=== PATIENT | female | born 1965 ===

== ENCOUNTER 2017-08-25 10:46 | Emergency (ER) | payer BC ==
[2017-08-25] MEDS ORDERED: Alum Hydrox/Mag Hydrox/Simeth 30 ML, Lidocaine 2% 15 ML PO ONE ×2 (11:27)
[2017-08-25] MEDS ORDERED: Aspirin 81 MG Tab.Chew PO ONE (11:27)
[2017-08-25] MEDS ORDERED: Famotidine 20 MG Tab PO ONE (12:29)
--- NOTE | 2017-08-25 12:32 | CT ---
Head CT Technique: Multiple axial sections through the brain were obtained. Intravenous contrast was not utilized. Comparison: No previous intracranial imaging. Findings: Ventricles along with basal cisterns and sulci over the convexities are within normal limits for the patient's age. No abnormal parenchymal densities are seen. No evidence of intracranial hemorrhage. No midline shift or mass effect is seen. Bone window settings were reviewed which shows no acute calvarial abnormality. Minimal fluid is seen within the sphenoid sinus. Sinuses otherwise are clear. No acute calvarial abnormality is seen. Impression: 1. Minimal fluid within the sphenoid sinus. Uncertain if this represents minimal sinusitis or retained secretions. 2. No acute intracranial abnormality is seen. Diagnostic code #3
--- NOTE | 2017-08-25 12:33 | EDM.PDOC ---
ED HPI GENERAL MEDICAL PROBLEM - General Chief Complaint: Chest Pain Stated Complaint: UPPER ABDOMINAL DISCOMFORT/L ARM WEAKNESS Time Seen by Provider: 08/25/17 11:12 Source of Information: Reports: Patient History Limitations: Reports: No Limitations - History of Present Illness INITIAL COMMENTS - FREE TEXT/NARRATIVE: Patient is a 51-year-old female who presents to the ED complaining of epigastric pain. Patient states she has a fullness to her abdomen after eating steak and fried potatoes last night. States the potatoes had plenty of pepper on it and may have worsened her GERD-like symptoms. With onset of epigastric discomfort she also developed some left-sided jaw pain, left arm ache, and heaviness. Pain at its peak was a 10 out of 10. Currently with admission to the ED it is a 1-2 out of 10. She has a history of acid reflux and does not take any meds on a regular basis. She's been mildly nauseated at times. She has no shortness of breath, orthopnea, chest pain with exertion, dizziness, vision changes, increased edema to lower extremities, PND, orthopnea, history of coronary disease, history of gastric ulcers, history of TIA/stroke, or any additional complaints. At no time did she have slurred speech, difficulty swallowing, or with ambulating. She has no headache. Their is a strong family history for 1st degree relatives with heart disease. Dad had the maker and is still alive. Mom has had many mini strokes. She is concerned about her heart and also possible stroke. Patient has no past medical history and currently taking no medications. She's had her gallbladder removed. She's had a partial hysterectomy. She does not smoke. She'll utilizes alcohol intermittently through the year. Denies any recreational drug use. Epigastric Pain Score (Numeric/FACES): 2 - Related Data Allergies Allergy/AdvReac Type Severity Reaction Status Date / Time Penicillins Allergy Rash Verified 08/25/17 10:58 phenobarbital Allergy Rash Verified 08/25/17 10:58 Home Meds: Home Meds . [No Known Home Meds] 08/25/17 [History] Past Medical History - Past Health History Medical/Surgical History: Denies Medical/Surgical History - Past Surgical History GI Surgical History: Reports: Cholecystectomy Female Surgical History: Reports: Hysterectomy Social & Family History - Tobacco Use Smoking Status *Q: Never Smoker - Recreational Drug Use Recreational Drug Use: No ED ROS GENERAL - Review of Systems Review Of Systems: See Below Constitutional: Reports: No Symptoms HEENT: Reports: No Symptoms Respiratory: Reports: No Symptoms, Shortness of Breath. Denies: Pleuritic Chest Pain, Cough, Sputum Cardiovascular: Reports: Chest Pain (To the lower sternal border). Denies: Blood Pressure Problem, Dyspnea on Exertion, Lightheadedness, Palpitations, Syncope GI/Abdominal: Reports: Abdominal Pain (Epigastric), Nausea (Mild intermittent). Denies: Constipation, Diarrhea, Vomiting : Reports: No Symptoms Musculoskeletal: Reports: No Symptoms (Currently) Skin: Reports: No Symptoms Neurological: Reports: No Symptoms (Currently) Psychiatric: Reports: No Symptoms ED EXAM, GENERAL - Physical Exam Exam: See Below Exam Limited By: No Limitations General Appearance: Alert, WD/WN, No Apparent Distress Eye Exam: Bilateral Eye: EOMI, Normal Inspection, PERRL Ears: Hearing Grossly Normal Nose: Normal Inspection Throat/Mouth: Normal Inspection, Normal Oropharynx, Normal Voice, No Airway Compromise Head: Atraumatic, Normocephalic Neck: Normal Inspection, Supple, Non-Tender, Full Range of Motion. No: Carotid Bruit (Bilateral) Respiratory/Chest: No Respiratory Distress, Lungs Clear, Normal Breath Sounds, No Accessory Muscle Use, Chest Non-Tender Cardiovascular: Normal Peripheral Pulses, Regular Rate, Rhythm, No Murmur Peripheral Pulses: 3+: Posterior Tibial (L), Posterior Tibial (R), 4+: Radial (L ), Radial (R) GI/Abdominal: Normal Bowel Sounds, Soft, No Organomegaly, No Distention, Tender (Mild tenderness noted to the epigastric region.) Back Exam: Normal Inspection. No: CVA Tenderness (L), CVA Tenderness (R) Extremities: Normal Inspection, Normal Range of Motion, Non-Tender, No Pedal Edema, Normal Capillary Refill Neurological: Alert, Oriented, CN II-XII Intact, Normal Cognition, No Motor/ Sensory Deficits, Other (No facial droop, slurred speech, uvula deviation, weakness discrepancy as to the upper and lower extremities. Cerebellar function intact including: Finger-nose, rapid alternating movements, and [id number].) Psychiatric: Normal Affect, Normal Mood Skin Exam: Warm, Dry, Intact, Normal Color, No Rash Course - Vital Signs Last Recorded V/S: Last Vital Signs Temp 98.5 F 08/25/17 10:55 Pulse 68 08/25/17 10:55 Resp 18 08/25/17 10:55 BP 132/90 08/25/17 10:55 Pulse Ox 99 08/25/17 10:55 - Orders/Labs/Meds Orders: Active Orders 24 hr Category Date Time Status EKG Documentation Completion [RC] ASDIRECTED Care 08/25/17 11:10 Active EKG 12 Lead [EK] Stat Ther 08/25/17 11:09 Ordered Labs: Laboratory Tests 08/25/17 08/25/17 08/25/17 Range/Units 11:06 11:06 11:06 WBC (3.98-10.04) K/mm3 RBC (3.98-5.22) M/mm3 Hgb (11.2-15.7) gm/L Hct (34.1-44.9) % MCV (79.4-94.8) fl MCH (25.6-32.2) pg MCHC (32.2-35.5) g/dl RDW Std Deviation (36.4-46.3) fL Plt Count (182-369) K/mm3 MPV (9.4-12.3) fl Neutrophils % (Manual) (40-60) % Band Neutrophils % (0-10) % Lymphocytes % (Manual) (20-40) % Atypical Lymphs % % Monocytes % (Manual) (2-10) % Eosinophils % (Manual) (0.7-5.8) % Basophils % (Manual) (0.1-1.2) Platelet Estimate RBC Morph Comment PT 10.0 (8.0-13.0) SECONDS INR 0.94 APTT 27 (22-36) SECONDS Sodium 144 (136-145) mEq/L Potassium 4.0 (3.5-5.1) mEq/L Chloride 106 (98-107) mEq/L Carbon Dioxide 28 (21-32) mEq/L Anion Gap 14.0 (5-15) BUN 11 (7-18) mg/dL Creatinine 0.9 (0.55-1.02) mg/dL Est Cr Clr Drug Dosing 53.12 mL/min Estimated GFR (MDRD) > 60 (>60) mL/min BUN/Creatinine Ratio 12.2 L (14-18) Glucose 99 (74-106) mg/dL Calcium 9.5 (8.5-10.1) mg/dL Total Bilirubin 0.6 (0.2-1.0) mg/dL AST 25 (15-37) U/L ALT 28 (14-59) U/L Alkaline Phosphatase 116 (46-116) U/L Troponin I < 0.017 (0.00-0.056) ng/mL Total Protein 8.0 (6.4-8.2) g/dl Albumin 4.1 (3.4-5.0) g/dl Globulin 3.9 gm/dL Albumin/Globulin Ratio 1.1 (1-2) Lipase 137 (73-393) U/L TSH 3rd Generation 2.265 (0.358-3.74) uIU/mL 08/25/17 08/25/17 Range/Units 11:09 14:20 WBC 7.90 (3.98-10.04) K/mm3 RBC 5.01 (3.98-5.22) M/mm3 Hgb 14.5 (11.2-15.7) gm/L Hct 46.3 H (34.1-44.9) % MCV 92.4 (79.4-94.8) fl MCH 28.9 (25.6-32.2) pg MCHC 31.3 L (32.2-35.5) g/dl RDW Std Deviation 44.5 (36.4-46.3) fL Plt Count 313 (182-369) K/mm3 MPV 9.7 (9.4-12.3) fl Neutrophils % (Manual) 65 H (40-60) % Band Neutrophils % 0 (0-10) % Lymphocytes % (Manual) 30 (20-40) % Atypical Lymphs % 0 % Monocytes % (Manual) 2 (2-10) % Eosinophils % (Manual) 3 (0.7-5.8) % Basophils % (Manual) 0 L (0.1-1.2) Platelet Estimate Adequate RBC Morph Comment Normal PT (8.0-13.0) SECONDS INR APTT (22-36) SECONDS Sodium (136-145) mEq/L Potassium (3.5-5.1) mEq/L Chloride (98-107) mEq/L Carbon Dioxide (21-32) mEq/L Anion Gap (5-15) BUN (7-18) mg/dL Creatinine (0.55-1.02) mg/dL Est Cr Clr Drug Dosing mL/min Estimated GFR (MDRD) (>60) mL/min BUN/Creatinine Ratio (14-18) Glucose (74-106) mg/dL Calcium (8.5-10.1) mg/dL Total Bilirubin (0.2-1.0) mg/dL AST (15-37) U/L ALT (14-59) U/L Alkaline Phosphatase (46-116) U/L Troponin I < 0.017 (0.00-0.056) ng/mL Total Protein (6.4-8.2) g/dl Albumin (3.4-5.0) g/dl Globulin gm/dL Albumin/Globulin Ratio (1-2) Lipase (73-393) U/L TSH 3rd Generation (0.358-3.74) uIU/mL Meds: Medications Discontinued Medications Generic Name Dose Route Start Last Admin Trade Name Freq PRN Reason Stop Dose Admin Aspirin 324 mg 08/25/17 11:27 08/25/17 11:44 Aspirin PO 08/25/17 11:28 324 mg ONETIME ONE Administration Al Hydroxide/Mg Hydroxide 30 0 ml 08/25/17 11:27 08/25/17 11:45 ml/ Lidocaine HCl 15 ml PO 08/25/17 11:28 45 ml ONETIME ONE Administration Famotidine 40 mg 08/25/17 12:29 08/25/17 12:44 Pepcid PO 08/25/17 12:30 40 mg ONETIME ONE Administration - Re-Assessments/Exams Free Text/Narrative Re-Assessment/Exam: Order aspirin 324 mg by mouth and also GI cocktail by mouth. Initial labs and studies will include CBC, chem 14, coag studies, lipase, troponin, TSH, chest x-ray, and CT of the head without contrast. EKG will be obtained as well. Labs reviewed:CBC and chemistry panel were essentially normal. Troponin less than 0.017. Lipase 137. TSH 2.2. Second troponin has been ordered for 2 pm. EKG sinus rhythm rate of [address] changes noted. Chest x-ray reviewed with Dr. Brand with no acute processes present. Interpretation is pending. Head CT minimal fluid within the sphenoid sinus. Uncertain if this is represents mild sinusitis retained secretions. No acute intracranial abnormalities seen 08/25/17 12:33 Patient has called the wards clerks desk and states she is having some epigastric discomfort. Upon examination patient states the discomfort is similar to episode of last night. This has been relieved with burping. No other complaints at this time. Vital signs are stable. Ordered pepcid. 2nd troponin will be obtained at 1400 hrs. 08/25/17 15:12 Second troponin was negative. She is symptom free. Will discharge patient home with instructions as documented. Will have patient follow up with primary care provider Matthew Adkins to determine need for further imaging including: Carotid ultrasounds and/or MRI of the brain. Patient describes her left arm symptoms as a heaviness with questionable weakness. Epigastric discomfort at its peak was a 10 during this time. On examination there is no neurological findings. I do not believe patient was having a TIA nor does Dr. Brand when discussing the patient with him. I did discuss return precautions with the patient. Departure - Departure Time of Disposition: 15:13 Disposition: Home, Self-Care 01 Condition: Good Clinical Impression: Atypical chest pain, Indigestion Instructions: Indigestion, [id number], Nonspecific Chest Pain Referrals: Francisca Adkins, [employer] [ED Midlevel Provider] - Forms: ED Department Discharge Additional Instructions: Do believe cause of discomfort is related to indigestion. Will have a use Zantac 150 mg twice a day for the next 7 days. May utilize Maalox immediately throughout the day as needed for any flareups. Push fluids. Follow-up with PCP within the next week for reevaluation. The cause of left arm heaviness was related to the indigestion. Please see your PCP and discuss if further testing is required with your family history of TIAs. I do not believe this was a TIA. Return to the ED if you develop any worsening symptoms. Refrain from any spicy foods, caffeinated beverages, spicy foods, carbonated beverages, eating or drinking within 4 hours ago in the bed or other foods or drinks that cause aggravation. - My Orders Last 24 Hours: My Active Orders 08/25/17 11:09 EKG 12 Lead [EK] Stat 08/25/17 11:10 EKG Documentation Completion [RC] ASDIRECTED - Assessment/Plan Last 24 Hours: My Active Orders 08/25/17 11:09 EKG 12 Lead [EK] Stat 08/25/17 11:10 EKG Documentation Completion [RC] ASDIRECTED
--- NOTE | 2017-08-25 14:52 | CR ---
Chest: Portable view of the chest was obtained. Comparison: No prior chest x-ray. Heart size and mediastinum are within normal limits. Lungs are clear. Surgical clips are seen from prior cholecystectomy. Bony structures are grossly intact. Impression: 1. Nothing acute is identified on portable chest x-ray. Diagnostic code #1
== END 2017-08-25 15:18 | disposition home or self-care (01) ==
LOC: JD.ED 10:46
DX: K30 Functional dyspepsia (principal); R07.89 Other chest pain; Z88.0 Allergy status to penicillin; Z88.8 Allergy status to other drugs, medicaments and biological substances
CPT/HCPCS: 36415; 70450; 71045; 80053; 83690; 84443; 84484; 85025; 85610; 85730; 93005; 99285; A9270; 93010; 99284-25